=== PATIENT | female | born 1980 | race Caucasian/White ===

== ENCOUNTER 2018-03-07 03:01 | Emergency (ER) | payer SELFPAY ==
[2018-03-07] MEDS ORDERED: NS 1,000 ML IV ONE (03:45)
[2018-03-07] MEDS ORDERED: LORazepam 2 MG/ML INJ IVP ONE (03:45)
--- NOTE | 2018-03-07 03:53 | EDPHY ---
H & P Stated Complaint: SOB, racing HR, tingling L arm Time Seen by Provider: 03/07/18 03:46 HPI/ROS: HPI CHIEF COMPLAINT: Anxiety, sob, tingling. HISTORY OF PRESENT ILLNESS: This is a 37-year-old female, she has history of chronic Lyme disease, mold toxicity, anxiety , history of PICC line in her left arm subsequently complicated by DVT. This was back in 2014. She had a PICC line for chronic Lyme treatment. She arrives to the emergency room at 3:30 a.m. She states she woke up suddenly gasping for air and feeling very anxious. Could not catch her breath. Ronan palpitations. No chest pain. No shortness of breath. Numbness and tingling throughout her body. She arrives to the emergency room by private vehicle her roommate drove her here. The patient states she feels very anxious. Denies chest pain Denies recent illness. Denies pleuritic pain. Still complains of numbness and tingling throughout her body Past Medical History: Chronic Lyme disease, mold toxicity, anxiety, frozen shoulder Past Surgical History: Denies recent surgery Social History: Denies drugs alcohol tobacco Family History: Noncontributory ROS REVIEW OF SYSTEMS: 10 Systems were reviewed and negative with the exception of the elements mentioned in the history of present illness. Exam Constitutional nontoxic appearing, triage nursing summary reviewed, vital signs reviewed, awake/alert. Vital signs stable triage no hypoxia and no tachycardia. Eyes normal conjunctivae and sclera, EOMI, PERRLA. HENT normal inspection, atraumatic, moist mucus membranes, no epistaxis, neck supple/ no meningismus, no raccoon eyes. Respiratory clear to auscultation bilaterally, normal breath sounds, no respiratory distress, no wheezing. Cardiovascular rate normal, regular rhythm, no murmur, no edema, distal pulses normal. Gastrointestinal soft, non-tender, no rebound, no guarding, normal bowel sounds, no distension, no pulsatile mass. Genitourinary no CVA tenderness. Musculoskeletal no midline vertebral tenderness, full range of motion, no calf swelling, no tenderness of extremities, no meningismus, good pulses, neurovascularly intact. Skin pink, warm, & dry, no rash, skin atraumatic. Neurologic awake, alert and oriented x 3, AAOx3, moves all 4 extremities equally, motor intact, sensory intact, CN II-XII intact, normal cerebellar, normal vision, normal speech. Psychiatric normal mood/affect. Heme/Lymph/Immune no lymphadenopathy. Differential Diagnosis: Includes but is not limited to in a particular order acute anxiety, panic attack, pneumothorax, PE, ACS, electrolyte disturbance, CVA Medical Decision Making: Plan for this patient IV establishment IV fluid bolus , IV Ativan for anxiety, chest x-ray, troponin, EKG, D-dimer and re-evaluate. Re-evaluation: EKG interpretation by me on record in [employer] system. Impression time of EKG 3:50 a.m. Sinus rhythm rate of 63 with no signs of acute ischemia. When I compare this to the patient's old EKG dated 04/07/2015 this is unchanged morphology. Patient refused the IV Ativan as she states that it will interfere with her " bee pollen" treatment for Chronic Lyme. ED x-ray chest one view negative for acute cardiopulmonary disease. Repeat EKG time: 6:03 a.m., sinus rhythm rate of 51, without any signs of acute ischemia. Similar to previous EKG. [id number]: Patient re-evaluated this time is resting comfortably. No acute distress. Denies chest pain or shortness of breath, denies numbness or tingling. Patient states she feels much better. Vital signs are stable with a heart rate in the 50s 60s. 2 EKG is nonischemic. Troponins x2 negative Electrolytes are appropriate. Return precautions discussed with the patient she should return emergency if develops worsening symptoms includes chest pain, shortness of breath, anxiety, not doing well. She was seen here in emergency for palpitations, tachycardia, anxiety, numbness and tingling I believe this to be an anxiety attack. She declined IV Ativan. She did receive IV fluids and rested here multiple hours. No further complaints I believe she is safe for discharge Return precautions discussed. - Personal History LMP (Females 10-55): Unknown Current Tetanus/Diphtheria Vaccine: Yes - Medical/Surgical History Hx Asthma: No Hx Chronic Respiratory Disease: No Hx Diabetes: No Hx Cardiac Disease: No Hx Renal Disease: No Hx Cirrhosis: No Hx Alcoholism: No Hx HIV/AIDS: No Hx Splenectomy or Spleen Trauma: No Other PMH: PMH: lyme disease since Mar 2013, blood clot in L arm, "mold toxicity ". PSH: - Social History Smoking Status: Never smoked Constitutional: Initial Vital Signs Temperature (C) 36.3 C 03/07/18 03:02 Heart Rate 108 H 03/07/18 03:02 Respiratory Rate 18 03/07/18 03:02 Blood Pressure 144/97 H 03/07/18 03:02 O2 Sat (%) 100 03/07/18 03:02 O2 Delivery Mode Room Air Allergies/Adverse Reactions: food allergies Allergy (Uncoded 03/07/18 03:05) Home Medications: Medication Instructions Recorded Herbal Drugs 09/14/15 Medical Decision Making - Data Points Laboratory Results: Laboratory Results 03/07/18 03:58 03/07/18 03:58 03/07/18 03/07/18 03/07/18 06:02 04:30 04:02 WBC RBC Hgb Hct MCV MCH MCHC RDW Plt Count MPV Neut % (Auto) Lymph % (Auto) [place] % (Auto) Eos % (Auto) Baso % (Auto) Nucleat RBC Rel Count Absolute Neuts (auto) Absolute Lymphs (auto) Absolute Monos (auto) Absolute Eos (auto) Absolute Basos (auto) Absolute Nucleated RBC Immature Gran % Immature Gran # PT INR APTT D-Dimer Sodium Potassium Chloride Carbon Dioxide Anion Gap BUN Creatinine Estimated GFR Glucose Calcium Magnesium Total Bilirubin Conjugated Bilirubin Unconjugated Bilirubin AST ALT Alkaline Phosphatase POC Troponin I 0.00 ng/mL ng/mL 0.02 ng/mL ng/mL (0.00-0.08) (0.00-0.08) NT-Pro-B Natriuret Pep Total Protein Albumin Beta HCG, Qual Urine Color PALE YELLOW Urine Appearance CLEAR Urine pH 7.0 (5.0-7.5) Ur Specific [place] 1.004 (1.002-1.030) Urine Protein NEGATIVE (NEGATIVE) Urine Ketones NEGATIVE (NEGATIVE) Urine Blood NEGATIVE (NEGATIVE) Urine Nitrate NEGATIVE (NEGATIVE) Urine Bilirubin NEGATIVE (NEGATIVE) Urine Urobilinogen NEGATIVE EU EU (0.2-1.0) Ur Leukocyte Esterase NEGATIVE (NEGATIVE) Urine RBC NONE SEEN /hpf /hpf (0-3) Urine WBC 0-1 /hpf /hpf (0-3) Ur Epithelial Cells TRACE /lpf /lpf (NONE-1+) Urine Bacteria 1+ /hpf H /hpf (NONE SEEN) Urine Mucus TRACE /lpf /lpf (NONE-1+) Urine Glucose NEGATIVE (NEGATIVE) Urine Opiates Screen NEGATIVE (NEGATIVE) Urine Barbiturates NEGATIVE (NEGATIVE) Ur Phencyclidine Scrn NEGATIVE (NEGATIVE) Ur Amphetamine Screen NEGATIVE (NEGATIVE) U Benzodiazepines Scrn NEGATIVE (NEGATIVE) Urine Cocaine Screen NEGATIVE (NEGATIVE) U Marijuana (THC) Screen NEGATIVE (NEGATIVE) 03/07/18 03/07/18 03/07/18 03:58 03:58 03:58 WBC RBC Hgb Hct MCV MCH MCHC RDW Plt Count MPV Neut % (Auto) Lymph % (Auto) [place] % (Auto) Eos % (Auto) Baso % (Auto) Nucleat RBC Rel Count Absolute Neuts (auto) Absolute Lymphs (auto) Absolute Monos (auto) Absolute Eos (auto) Absolute Basos (auto) Absolute Nucleated RBC Immature Gran % Immature Gran # PT 14.1 SEC SEC (12.0-15.0) INR 1.07 (0.83-1.16) APTT 26.7 SEC SEC (23.0-38.0) D-Dimer < 0.27 ug/mLFEU ug/mLFEU (0.00-0.50) Sodium 139 mEq/L mEq/L (135-145) Potassium 3.7 mEq/L mEq/L (3.5-5.2) Chloride 106 mEq/L mEq/L (97-110) Carbon Dioxide 23 mEq/l mEq/l (22-31) Anion Gap 10 mEq/L mEq/L (6-14) BUN 18 mg/dL mg/dL (7-23) Creatinine 0.7 mg/dL mg/dL (0.6-1.0) Estimated GFR > 60 Glucose 98 mg/dL mg/dL (70-100) Calcium 9.5 mg/dL mg/dL (8.5-10.4) Magnesium 1.8 mg/dL mg/dL (1.6-2.3) Total Bilirubin 0.9 mg/dL mg/dL (0.1-1.4) Conjugated Bilirubin 0.2 mg/dL mg/dL (0.0-0.5) Unconjugated Bilirubin 0.7 mg/dL mg/dL (0.0-1.1) AST 26 IU/L IU/L (14-46) ALT 20 IU/L IU/L (9-52) Alkaline Phosphatase 56 IU/L IU/L (38-126) POC Troponin I NT-Pro-B Natriuret Pep 21 pg/mL pg/mL (0-125) Total Protein 7.0 g/dL g/dL (6.3-8.2) Albumin 4.3 g/dL g/dL (3.5-5.0) Beta HCG, Qual NEGATIVE Urine Color Urine Appearance Urine pH Ur Specific [place] Urine Protein Urine Ketones Urine Blood Urine Nitrate Urine Bilirubin Urine Urobilinogen Ur Leukocyte Esterase Urine RBC Urine WBC Ur Epithelial Cells Urine Bacteria Urine Mucus Urine Glucose Urine Opiates Screen Urine Barbiturates Ur Phencyclidine Scrn Ur Amphetamine Screen U Benzodiazepines Scrn Urine Cocaine Screen U Marijuana (THC) Screen 03/07/18 03:58 WBC 3.76 10^3/uL L 10^3/uL (3.80-9.50) RBC 4.24 10^6/uL 10^6/uL (4.18-5.33) Hgb 13.5 g/dL g/dL (12.6-16.3) Hct 40.6 % % (38.0-47.0) MCV 95.8 fL fL (81.5-99.8) MCH 31.8 pg pg (27.9-34.1) MCHC 33.3 g/dL g/dL (32.4-36.7) RDW 12.3 % % (11.5-15.2) Plt Count 155 10^3/uL 10^3/uL (150-400) MPV 11.4 fL fL (8.7-11.7) Neut % (Auto) 44.6 % % (39.3-74.2) Lymph % (Auto) 42.8 % % (15.0-45.0) [place] % (Auto) 8.8 % % (4.5-13.0) Eos % (Auto) 2.7 % % (0.6-7.6) Baso % (Auto) 0.8 % % (0.3-1.7) Nucleat RBC Rel Count 0.0 % % (0.0-0.2) Absolute Neuts (auto) 1.68 10^3/uL L 10^3/uL (1.70-6.50) Absolute Lymphs (auto) 1.61 10^3/uL 10^3/uL (1.00-3.00) Absolute Monos (auto) 0.33 10^3/uL 10^3/uL (0.30-0.80) Absolute Eos (auto) 0.10 10^3/uL 10^3/uL (0.03-0.40) Absolute Basos (auto) 0.03 10^3/uL 10^3/uL (0.02-0.10) Absolute Nucleated RBC 0.00 10^3/uL 10^3/uL (0-0.01) Immature Gran % 0.3 % % (0.0-1.1) Immature Gran # 0.01 10^3/uL 10^3/uL (0.00-0.10) PT INR APTT D-Dimer Sodium Potassium Chloride Carbon Dioxide Anion Gap BUN Creatinine Estimated GFR Glucose Calcium Magnesium Total Bilirubin Conjugated Bilirubin Unconjugated Bilirubin AST ALT Alkaline Phosphatase POC Troponin I NT-Pro-B Natriuret Pep Total Protein Albumin Beta HCG, Qual Urine Color Urine Appearance Urine pH Ur Specific [place] Urine Protein Urine Ketones Urine Blood Urine Nitrate Urine Bilirubin Urine Urobilinogen Ur Leukocyte Esterase Urine RBC Urine WBC Ur Epithelial Cells Urine Bacteria Urine Mucus Urine Glucose Urine Opiates Screen Urine Barbiturates Ur Phencyclidine Scrn Ur Amphetamine Screen U Benzodiazepines Scrn Urine Cocaine Screen U Marijuana (THC) Screen Medications Given: Discontinued Medications Sodium Chloride (Ns) 1,000 mls @ 0 mls/hr IV EDNOW ONE; Wide Open PRN Reason: Protocol Stop: 03/07/18 03:46 Last Admin: 03/07/18 04:01 Dose: 1,000 mls Lorazepam (Ativan Injection) 0.5 mg IVP EDNOW ONE Stop: 03/07/18 03:46 Last Admin: 03/07/18 04:01 Dose: Not Given Point of Care Test Results: Chemistry 03/07/18 03/07/18 06:02 04:02 POC Troponin I 0.00 ng/mL ng/mL 0.02 ng/mL ng/mL (0.00-0.08) (0.00-0.08) Departure - Departure Disposition: Home, Routine, Self-Care Clinical Impression: Palpitation, Anxiety Condition: Good Instructions: Heart Palpitations (ED), Anxiety (ED) Additional Instructions: 1. Follow up with your primary care doctor 2. Return emergency room if you have worsening symptoms this includes racing heart, shortness of breath, pain. Referrals: AAMIR MANN [Other] - As per Instructions
[2018-03-07 04:23] LABS: PLATELET COUNT 155 10^3/uL (150-400)
[2018-03-07 04:32] LABS: INR 1.07 (0.83-1.16); PROTIME(PATIENT) 14.1 SEC (12.0-15.0)
[2018-03-07 06:35] VITALS: BP 102/71
--- NOTE | 2018-03-07 07:11 | CPEKG ---
Test Reason : OPEN Blood Pressure : / mmHG Vent. Rate : 063 BPM Atrial Rate : 062 BPM P-R Int : 161 ms QRS Dur : 104 ms QT Int : 415 ms P-R-T Axes : 048 016 037 degrees QTc Int : 425 ms Sinus rhythm Confirmed by Eugene Whalen ([id number]) on 03/07/2018 7:10:34 AM Referred By: Confirmed By:Eugene Whalen
--- NOTE | 2018-03-09 06:07 | CPEKG ---
Test Reason : OPEN Blood Pressure : / mmHG Vent. Rate : 051 BPM Atrial Rate : 050 BPM P-R Int : 170 ms QRS Dur : 100 ms QT Int : 431 ms P-R-T Axes : 052 043 032 degrees QTc Int : 397 ms Sinus rhythm Confirmed by Larry Bhatia ([id number] on 03/09/2018 6:07:11 AM Referred By: Confirmed By:Larry Bhatia
== END 2018-03-07 06:35 | disposition home or self-care (01) ==
DX: R00.2 Palpitations (principal); F41.9 Anxiety disorder, unspecified; A69.20 Lyme disease, unspecified
CPT/HCPCS: 80305; 84484-PO; 96374; J2060